=== PATIENT | female | born 1940 | race Two or more races ===

== ENCOUNTER 2018-03-20 10:27 | Outpatient (CLI) | payer OTHER ==
[~2018-03-20 10:27] MED LIST: COZAAR50 MG; DIOVAN320 MG; LEXAPRO20 MG; LITIUM; MOBIC7.5 M1 PO; NEURONTIN800 MG; ORPH100T PO; SEROQUEL25 MG
== END 2018-03-20 10:36 | disposition home or self-care (01) ==
LOC: MAMO-SONO 10:27
DX: R92.0 Mammographic microcalcification found on diagnostic imaging of breast (principal); N60.11 Diffuse cystic mastopathy of right breast; N60.12 Diffuse cystic mastopathy of left breast

== ENCOUNTER 2018-04-03 15:02 | Emergency (ER) | payer OTHER ==
[~2018-04-03] VITALS: Ht 162.6 cm; Wt 90.7 kg
[2018-04-03] MEDS ORDERED: LASIX20 MG (15:37)
[2018-04-03] MEDS ORDERED: PLAVIX75 MG (15:38)
[2018-04-03] MEDS ORDERED: TAMOXIFEN CITRA20 MG (15:38)
[2018-04-03] MEDS ORDERED: OSTERA TABLET1 EACH (15:39)
[2018-04-03] MEDS ORDERED: ZOCOR20 MG (15:39)
== END 2018-04-03 21:10 | disposition home or self-care (01) ==
LOC: ER 15:02
DX: M25.551 Pain in right hip (principal)

== ENCOUNTER 2020-11-14 10:43 | Emergency (ER) | payer OTHER ==
[~2020-11-14] VITALS: Ht 165.1 cm; Wt 97.5 kg
[~2020-11-14 10:43] MED LIST changes: +LASIX20 MG; +OSTERA TABLET1 EACH; +PLAVIX75 MG; +TAMOXIFEN CITRA20 MG; +ZOCOR20 MG
[2020-11-14] MEDS ORDERED: SPIRONOLACTONE25 MG PO (11:40)
[2020-11-14] MEDS ORDERED: ARIPIPRAZOLE5 MG PO (11:40)
[2020-11-14] MEDS ORDERED: CARVEDILOL3.125 M1 PO (11:40)
[2020-11-14] MEDS ORDERED: CANDESARTAN CILE4 MG PO (11:41)
[2020-11-14] MEDS ORDERED: CLONAZEPAM2 MG PO (11:41)
[2020-11-14] MEDS ORDERED: CLOPIDOGREL BIS75 MG PO (11:41)
[2020-11-14] MEDS ORDERED: DIVALPROEX SOD500 M1 PO (11:41)
[2020-11-14] MEDS ORDERED: SYSTANE COMPLE1.5 ML OP (11:42)
[2020-11-14] MEDS ORDERED: CALCIUM 600-VI1 EAC2 PO (11:42)
[2020-11-14] MEDS ORDERED: FAMOTIDINE20 MG PO (11:42)
[2020-11-14] MEDS ORDERED: GABAPENTIN400 MG PO (11:43)
[2020-11-14] MEDS ORDERED: TRAZODONE HCL100 MG PO (11:43)
[2020-11-14] MEDS ORDERED: SYNTHROID50 MCG PO (11:43)
[2020-11-14] MEDS ORDERED: SIMVASTATIN40 MG PO (11:44)
[2020-11-14] MEDS ORDERED: RENAL-VITE TAB0.8 MG PO (11:47)
[2020-11-14] MEDS ORDERED: LEVSIN/SL0.125 MG PO (14:40)
[2020-11-14] MEDS ORDERED: ULTRAM50 MG PO (14:40)
[2020-11-14] MEDS ORDERED: PEPCID AC20 MG PO (14:40)
[2020-11-14] MEDS ORDERED: ONDANSETRON ODT4 MG SL (14:40)
== END 2020-11-14 14:57 | disposition home or self-care (01) ==
LOC: ER 10:43 → EMR PED 11:01
DX: K80.70 Calculus of gallbladder and bile duct without cholecystitis without obstruction (principal); Z03.818 Encounter for observation for suspected exposure to other biological agents ruled out

== ENCOUNTER 2020-12-05 11:30 | Outpatient (CLI) | payer OTHER ==
[~2020-12-05 11:30] MED LIST changes: +ARIPIPRAZOLE5 MG PO; +CALCIUM 600-VI1 EAC2 PO; +CANDESARTAN CILE4 MG PO; +CARVEDILOL3.125 M1 PO; +CLONAZEPAM2 MG PO; +CLOPIDOGREL BIS75 MG PO; +DIVALPROEX SOD500 M1 PO; +FAMOTIDINE20 MG PO; +GABAPENTIN400 MG PO; +LEVSIN/SL0.125 MG PO; +ONDANSETRON ODT4 MG SL; +PEPCID AC20 MG PO; +RENAL-VITE TAB0.8 MG PO; +SIMVASTATIN40 MG PO; +SPIRONOLACTONE25 MG PO; +SYNTHROID50 MCG PO; +SYSTANE COMPLE1.5 ML OP; +TRAZODONE HCL100 MG PO; +ULTRAM50 MG PO
[2020-12-12] MEDS ORDERED: FUROSEMIDE20 MG PO (13:47)
[2020-12-12] MEDS ORDERED: TRAZO PO (13:47)
[2020-12-12] MEDS ORDERED: DIVALPROEX SOD500 MG PO (13:48)
== END 2020-12-05 11:36 | disposition home or self-care (01) ==
LOC: RAD 11:30
PROVIDERS: ATTEND Surgery
DX: Z01.811 Encounter for preprocedural respiratory examination (principal); K80.10 Calculus of gallbladder with chronic cholecystitis without obstruction

== ENCOUNTER 2020-12-19 06:04 | Day surgery (SDC) | payer OTHER ==
[~2020-12-19 06:04] MED LIST changes: +DIVALPROEX SOD500 MG PO; +FUROSEMIDE20 MG PO; +TRAZO PO
== END 2020-12-19 12:20 | disposition home or self-care (01) ==
LOC: CIR.AMB 06:04
PROVIDERS: ATTEND Surgery
DX: K80.10 Calculus of gallbladder with chronic cholecystitis without obstruction (principal); Z20.822 Contact with and (suspected) exposure to COVID-19

== ENCOUNTER 2022-09-16 12:24 | Emergency (ER) | payer OTHER ==
[~2022-09-16] VITALS: Ht 162.6 cm; Wt 93.4 kg
[2022-09-16] MEDS ORDERED: ELIQUIS5 MG (12:51)
[2022-09-16] MEDS ORDERED: PEPCID AC20 MG PO (19:10)
== END 2022-09-16 19:27 | disposition home or self-care (01) ==
LOC: ER 12:24
DX: R10.9 Unspecified abdominal pain (principal)

== ENCOUNTER 2023-05-13 21:51 | Inpatient (IN) | payer OTHER ==
[~2023-05-13] VITALS: Ht 165.1 cm; Wt 87.1 kg
[~2023-05-13 21:51] MED LIST changes: +ELIQUIS5 MG
== END 2023-05-15 17:45 | disposition home or self-care (01) | DRG 309 ==
LOC: ER 21:51 → MEDJ 05-14 11:25 → SURG 05-14 13:04
PROVIDERS: ADMIT Specialist; ATTEND Specialist
PROC: 4A12X4Z Monitoring of Cardiac Electrical Activity, External Approach (ICD-10-PCS; principal; 2023-05-14)
PROC: B030ZZZ Magnetic Resonance Imaging (MRI) of Brain (ICD-10-PCS; 2023-05-14)
PROC: BW28ZZZ Computerized Tomography (CT Scan) of Head (ICD-10-PCS; 2023-05-14)
PROC: B246ZZZ Ultrasonography of Right and Left Heart (ICD-10-PCS; 2023-05-14)
PROC: B345ZZZ Ultrasonography of Bilateral Common Carotid Arteries (ICD-10-PCS; 2023-05-14)
PROC: B348ZZZ Ultrasonography of Bilateral Internal Carotid Arteries (ICD-10-PCS; 2023-05-14)
DX: I48.91 Unspecified atrial fibrillation (principal); G21.19 Other drug induced secondary parkinsonism; G45.9 Transient cerebral ischemic attack, unspecified; N39.0 Urinary tract infection, site not specified; Z86.73 Personal history of transient ischemic attack (TIA), and cerebral infarction without residual deficits; Z20.822 Contact with and (suspected) exposure to COVID-19
CPT/HCPCS: 70544

== ENCOUNTER → 2023-12-16 | Emergency (ER) | payer OTHER ==
[~2023-12-16] VITALS: Ht 154.9 cm; Wt 113.4 kg
[~2023-12-16] MED LIST changes: +8 HOUR PAIN RE650 M1 PO; +KETOROLAC TROMETHAMINE 15 MG VIAL IM STA
== END | disposition home or self-care (01) ==
LOC: ER 13:34
DX: S39.94XA Unspecified injury of external genitals, initial encounter (principal); W18.39XA Other fall on same level, initial encounter; Y93.89 Activity, other specified; Y92.012 Bathroom of single-family (private) house as the place of occurrence of the external cause; Z86.73 Personal history of transient ischemic attack (TIA), and cerebral infarction without residual deficits; I49.8 Other specified cardiac arrhythmias; G30.8 Other Alzheimer's disease; F02.80 Dementia in other diseases classified elsewhere, unspecified severity, without behavioral disturbance, psychotic disturbance, mood disturbance, and anxiety
CPT/HCPCS: 72100; 73503; 96372; J1885

== ENCOUNTER 2025-03-18 11:44 | Inpatient (IN) | payer OTHER ==
[~2025-03-18] VITALS: Ht 165.1 cm; Wt 87.1 kg
[~2025-03-18 11:44] MED LIST changes: -KETOROLAC TROMETHAMINE 15 MG VIAL IM STA
[2025-03-18] MEDS ORDERED: ATROPINE SULFATE 0.4 MG/ML VIAL IV ONE (12:30)
[2025-03-18] MEDS ORDERED: 0.9 % SODIUM CHLORIDE 1,000 ML IV SCH (12:30)
[2025-03-18] MEDS ORDERED: ATROPINE SULFATE 0.4 MG/ML VIAL ONE (12:51)
[2025-03-18 13:00] LABS: BASO % 0.5 % (0.1-1.2); EOS # 0.12 (0.04-0.54); EOS % 1.6 % (0.7-7.0); HEMATOCRIT 31.9 % (34.1-44.9); HEMOGLOBIN 10.9 g/dL (11.2-15.7); LYMPH # 1.99 (1.18-3.74); LYMPH % 25.7 % (19.3-53.1); MEAN CORPUSCULAR HEMOGLOBIN 29.9 pg (25.6-32.2); MONO # 1.14 (0.24-0.82); NEUT # 4.41 (1.56-6.13); NEUT % 57.1 % (34.0-71.1); PLATELET COUNT 161 K/uL (163-369); RED BLOOD COUNT 3.65 M/uL (3.93-5.22); RED CELL DISTRIBUTION WIDTH 14.7 % (11.6-14.4)
[2025-03-18 13:04] LABS: MONO % 14.7 % (4.7-12.5)
[2025-03-18 13:59] LABS: INR 1.14; PARTIAL THROMBOPLASTIN TIME 30.9 SECONDS (22.0-34.0); PROTHROMBIN TIME 12.3 SECONDS (9.0-11.5)
[2025-03-18 14:33] LABS: URINE APPEARANCE Cloudy; URINE BILIRRUBIN Negative (NEGATIVE); URINE BLOOD Trace; URINE COLOR Yellow; URINE GLUCOSE Negative (NEGATIVE); URINE KETONE Negative (NEGATIVE); URINE LEUKOCYTE Large; URINE NITRATE Negative; URINE PROTEIN Negative (NEGATIVE); URINE UROBILINOGEN 0.2 E.U./dl
[2025-03-18 14:36] LABS: URINE BACTERIA 3829.6 uL (0.0-1933); URINE EPITHELIAL CELLS 109.3 uL (0.0-38.8); URINE RBC 4.7 uL (0.0-20.8); URINE WBC 225.7 uL (0.0-23.2)
[2025-03-18 14:55] LABS: ALBUMIN 3.3 gm/dL (3.4-5.0); BILIRUBIN TOTAL 0.51 mg/dL (0.3-1.2); CALCIUM 8.6 mg/dL (8.5-10.1); CREATININE SERUM 0.96 mg/dL (0.55-1.02); GFR 55.5; POTASSIUM 4.49 mEq/L (3.5-5.1); TOTAL PROTEIN 7.3 gm/dL (6.4-8.2)
[2025-03-18 14:56] LABS: DIGOXIN 0.1 ng/ml (0.8-2.0)
[2025-03-18 15:04] LABS: URINE CAST 0.14 uL (0.0-1.40)
[2025-03-18 15:06] LABS: URINE CRYSTALS FEW /HPF
[2025-03-18] MEDS ORDERED: NITROGLYCERIN IN 5 % DEXTROSE 50 MG/250 ML BOTTLE IV ONE (19:26)
[2025-03-18] MEDS ORDERED: IPRATROPIUM BROMIDE 0.5 MG/2.5 ML AMPUL.NEB IH SCH (19:36)
[2025-03-18] MEDS ORDERED: FUROsemide 20 MG/2 ML VIAL IV SCH (19:42)
[2025-03-18] MEDS ORDERED: SIMVASTATIN 40 MG TABLET PO SCH (19:43)
[2025-03-18] MEDS ORDERED: CEFTRIAXONE SODIUM 2,000 MG in 0.9 % SODIUM CHLORIDE 100 ML IV SCH (19:44)
[2025-03-18] MEDS ORDERED: NITROGLYCERIN IN 5 % DEXTROSE 250 ML IV SCH ×2 (19:45→20:00)
[2025-03-18] MEDS ORDERED: FAMOTIDINE/PF 20 MG in 0.9 % SODIUM CHLORIDE 8 ML IV PUSH SCH (19:46)
[2025-03-18] MEDS ORDERED: ACETAMINOPHEN 500 MG GEL..CAP PO PRN (20:00)
[2025-03-18] MEDS ORDERED: FUROsemide 20 MG/2 ML VIAL ONE (20:07)
[2025-03-18] MEDS ORDERED: CEFTRIAXONE SODIUM 2,000 MG VIAL ONE (20:08)
[2025-03-18] MEDS ORDERED: FAMOTIDINE/PF 20 MG/2 ML VIAL ONE (20:08)
[2025-03-18] MEDS ORDERED: CLONAZEPAM 0.5 MG TABLET PO SCH (21:00)
[2025-03-18] MEDS ORDERED: TRAZODONE HCL 50 MG TABLET PO SCH (21:00)
[2025-03-19] VITALS (9 sets, daily range): BP systolic 104–147; BP diastolic 58–87; O2SAT 96–100
[2025-03-19 00:26] LABS: INR 1.11; PARTIAL THROMBOPLASTIN TIME 28.5 SECONDS (22.0-34.0)
[2025-03-19] MEDS ORDERED: APIXABAN 5 MG TABLET PO SCH (05:00)
[2025-03-19] MEDS ORDERED: LEVOTHYROXINE SODIUM 75 MCG TABLET PO SCH (06:00)
[2025-03-19] MEDS ORDERED: IPRATROPIUM BROMIDE 0.5 MG/2.5 ML AMPUL.NEB IH ONE (07:59)
[2025-03-19] MEDS ORDERED: DIVALPROEX SODIUM 500 MG TAB.ER.24H PO SCH (09:00)
[2025-03-19] MEDS ORDERED: DIVALPROEX SODIUM 250 MG TAB.ER.24H PO SCH (09:00)
[2025-03-19 15:15] LABS: FREE TRIODOTIRONINE 1.99 pg/ml (2.18-3.98); T4 FREE 1.03 NG/ML (0.76-1.46)
[2025-03-19 15:17] LABS: TSH 5.45 uIU/mL (0.358-3.74)
[2025-03-20] VITALS (8 sets, daily range): BP systolic 119–171; BP diastolic 72–80; O2SAT 95–100
[2025-03-20] MEDS ORDERED: LEVOTHYROXINE SODIUM 100 MCG TABLET PO SCH (06:00)
[2025-03-20] MEDS ORDERED: FUROsemide 20 MG/2 ML VIAL IV SCH (09:00)
[2025-03-20] MEDS ORDERED: PRIMIDONE 50 MG TABLET PO SCH (09:00)
[2025-03-21 01:07] VITALS: O2SAT 97
[2025-03-21 01:28] VITALS: BP 127/82; O2SAT 95
[2025-03-21 05:12] VITALS: O2SAT 94
[2025-03-21] MEDS ORDERED: LEVOTHYROXINE SODIUM 88 MCG TABLET PO SCH (06:00)
[2025-03-21 07:53] VITALS: BP 150/90; O2SAT 99
[2025-03-21] MEDS ORDERED: LOSARTAN POTASSIUM 25 MG TABLET PO SCH (09:20)
[2025-03-21] MEDS ORDERED: GABAPENTIN 100 MG CAPSULE PO SCH (09:21)
[2025-03-21 09:31] VITALS: O2SAT 94
[2025-03-21] MEDS ORDERED: LEVOTHYROXINE88 MCG PO (12:15)
[2025-03-21 12:47] VITALS: O2SAT 90
[2025-03-24 15:08] LABS: anti thy < 1.0 IU/mL (0.0-0.9); tpo 14 IU/mL (0-34)
== END 2025-03-21 13:04 | disposition home or self-care (01) | DRG 291 ==
LOC: ER 11:44 → ICU-2 03-19 00:25 → MEDI 03-19 12:26
PROVIDERS: Emergency Medicine; ADMIT Internal Medicine; ATTEND Internal Medicine
PROC: 4A12X4Z Monitoring of Cardiac Electrical Activity, External Approach (ICD-10-PCS; principal; 2025-03-18)
PROC: B246ZZZ Ultrasonography of Right and Left Heart (ICD-10-PCS; 2025-03-18)
DX: I11.0 Hypertensive heart disease with heart failure (principal); I50.23 Acute on chronic systolic (congestive) heart failure; N39.0 Urinary tract infection, site not specified; I48.91 Unspecified atrial fibrillation; E87.70 Fluid overload, unspecified; M62.81 Muscle weakness (generalized); E03.9 Hypothyroidism, unspecified

== ENCOUNTER 2025-09-23 18:10 | Inpatient (IN) | payer OTHER ==
[~2025-09-23] VITALS: Ht 162.6 cm; Wt 83.5 kg
[~2025-09-23 18:10] MED LIST changes: +LEVOTHYROXINE88 MCG PO
[2025-09-23] MEDS ORDERED: ATIVAN1 M1 PO (19:03)
[2025-09-23] MEDS ORDERED: ABILIFY5 MG PO (19:03)
[2025-09-23] MEDS ORDERED: WELLBUTRIN XL150 M1 PO (19:04)
[2025-09-23] MEDS ORDERED: TRAZODONE HCL150 MG PO (19:06)
[2025-09-23] MEDS ORDERED: GRALISE600 MG PO (19:07)
[2025-09-23] MEDS ORDERED: CARBIDOPA-LEVO1 EAC1 (19:08)
[2025-09-23] MEDS ORDERED: TRIPHROCAPS SOFT1 MG PO (19:09)
[2025-09-23] MEDS ORDERED: D3-200050 MCG (19:10)
[2025-09-23] MEDS ORDERED: DAFLONEX-XL 11300 MG PO (19:12)
[2025-09-23] MEDS ORDERED: LEVO-T88 MCG PO (19:12)
[2025-09-23] MEDS ORDERED: [UNRECOGNIZED DRUG - OTHER] PO (19:13)
[2025-09-23] MEDS ORDERED: LOSARTAN POTASS50 MG PO (19:14)
[2025-09-23] MEDS ORDERED: METHYLPREDNISOLONE SOD SUCC 40 MG VIAL IV ONE (19:45)
[2025-09-23] MEDS ORDERED: IPRATROPIUM BROMIDE 0.5 MG/2.5 ML AMPUL.NEB IH ONE (19:45)
[2025-09-23 20:33] LABS: ERYTHROCYTE SEDIMENTATION RATE 75 mm/hr (0-30)
[2025-09-23 20:34] LABS: BASO % 0.2 % (0.1-1.2); EOS # 0.01 (0.04-0.54); EOS % 0.1 % (0.7-7.0); LYMPH # 1.29 (1.18-3.74); LYMPH % 10.4 % (19.3-53.1); MEAN PLATELET VOLUME 11.00 fl (9.4-12.4); MONO # 0.83 (0.24-0.82); MONO % 6.7 % (4.7-12.5); NEUT # 10.16 (1.56-6.13); NEUT % 82.4 % (34.0-71.1); RED CELL DISTRIBUTION WIDTH 13.9 % (11.6-14.4)
[2025-09-23 20:53] LABS: COVID-19 AG NEGATIVE (NEGATIVE)
[2025-09-23 21:24] LABS: URINE APPEARANCE Clear; URINE BILIRRUBIN Negative (NEGATIVE); URINE BLOOD Trace; URINE COLOR Yellow; URINE GLUCOSE Negative (NEGATIVE); URINE KETONE Negative (NEGATIVE); URINE LEUKOCYTE Trace; URINE NITRATE Negative; URINE PROTEIN Negative (NEGATIVE); URINE UROBILINOGEN 0.2 E.U./dl
[2025-09-23 21:28] LABS: URINE BACTERIA 111.5 uL (0.0-1933); URINE EPITHELIAL CELLS 8.3 uL (0.0-38.8); URINE RBC 2.7 uL (0.0-20.8); URINE WBC 18.7 uL (0.0-23.2)
[2025-09-23 21:31] LABS: URINE CAST 0.14 uL (0.0-1.40)
[2025-09-24] MEDS ORDERED: DOXYCYCLINE HYCLATE 100MG IV ONE (00:45)
[2025-09-24] MEDS ORDERED: CEFTRIAXONE SODIUM 1,000 MG VIAL IV ONE (00:45)
[2025-09-24] MEDS ORDERED: FAMOTIDINE/PF 20 MG/2 ML VIAL IV ONE (00:45)
[2025-09-24] MEDS ORDERED: IPRATROPIUM BROMIDE 0.5 MG/2.5 ML AMPUL.NEB IH ONE (01:15)
[2025-09-24] MEDS ORDERED: METHYLPREDNISOLONE SOD SUCC 40 MG VIAL IV ONE (01:15)
[2025-09-24 02:03] LABS: ALT/SGPT 43.0 U/L (12-78); AST/SGOT 68.0 U/L (15-37); BILIRUBIN TOTAL 0.61 mg/dL (0.3-1.2); BUN CREA RATIO 24.0 (7.0-25.0); CREATININE SERUM 0.9 mg/dL (0.55-1.02); GFR 59.8; GLOBULINA 4.3 G/DL (2.4-3.5); GLUCOSE FASTING 186.0 mg/dL (65-100); OSMOLALITY SERUM 288.0 MOSM/KG (275-295)
[2025-09-24 02:13] LABS: ALT/SGPT 42.0 U/L (12-78); AST/SGOT 67.0 U/L (15-37); BILIRUBIN TOTAL 0.61 mg/dL (0.3-1.2); BUN CREA RATIO 26.0 (7.0-25.0); CREATININE SERUM 0.88 mg/dL (0.55-1.02); GFR 61.37; GLOBULINA 4.3 G/DL (2.4-3.5); GLUCOSE FASTING 187.0 mg/dL (65-100); OSMOLALITY SERUM 288.0 MOSM/KG (275-295)
[2025-09-24 02:14] LABS: CKMB 4.0 NG/ML (0.5-3.6)
[2025-09-24] MEDS ORDERED: DOXYCYCLINE HYCLATE 100MG IV SCH (07:21)
[2025-09-24] MEDS ORDERED: SIMVASTATIN 40 MG TABLET PO SCH (07:22)
[2025-09-24] MEDS ORDERED: ACETAMINOPHEN 500 MG GEL..CAP PO PRN (07:30)
[2025-09-24] MEDS ORDERED: 0.9 % SODIUM CHLORIDE 1,000 ML IV SCH (07:30)
[2025-09-24] MEDS ORDERED: DEXTROSE 50 % IN WATER 0.5 G/ML DISP.SYRIN IV PRN (07:30)
[2025-09-24] MEDS ORDERED: INSULIN LISPRO 1,000 UNIT/10 ML UNITS SUBCUTANEO PRN (07:30)
[2025-09-24] MEDS ORDERED: METHYLPREDNISOLONE SOD SUCC 40 MG VIAL IV SCH (09:00)
[2025-09-24] MEDS ORDERED: OSELTAMIVIR PHOSPHATE 75 MG CAPSULE PO SCH (09:00)
[2025-09-24] MEDS ORDERED: FAMOTIDINE/PF 20 MG in 0.9 % SODIUM CHLORIDE 8 ML IV PUSH SCH (09:00)
[2025-09-24] MEDS ORDERED: APIXABAN 5 MG TABLET PO SCH (09:00)
[2025-09-24] MEDS ORDERED: LEVALBUTEROL HCL 1.25 MG/3 ML SOLUTION IH SCH (09:00)
[2025-09-24] MEDS ORDERED: IPRATROPIUM BROMIDE 0.5 MG/2.5 ML AMPUL.NEB IH SCH (09:00)
[2025-09-24] MEDS ORDERED: CEFTRIAXONE SODIUM 2,000 MG in 0.9 % SODIUM CHLORIDE 100 ML IV SCH (09:00)
[2025-09-24] MEDS ORDERED: CARBIDOPA/LEVODOPA 25/100 UDTAB PO SCH (09:00)
[2025-09-24 16:54] VITALS: BP 158/72; O2SAT 97
[2025-09-25 01:14] VITALS: BP 131/72; O2SAT 97
[2025-09-25 08:00] VITALS: BP 128/63; O2SAT 95
[2025-09-25] MEDS ORDERED: GABAPENTIN 400 MG CAPSULE PO SCH (08:00)
[2025-09-25] MEDS ORDERED: CARBIDOPA/LEVODOPA 25/100 UDTAB PO SCH (09:00)
[2025-09-25] MEDS ORDERED: OSELTAMIVIR PHOSPHATE 30MG CAP PO SCH (09:00)
[2025-09-25] MEDS ORDERED: HALOPERIDOL 2 MG TABLET PO PRN (12:30)
[2025-09-25 16:50] VITALS: BP 159/69; O2SAT 94
[2025-09-25] MEDS ORDERED: CLONAZEPAM 1 MG TABLET PO SCH (21:00)
[2025-09-25] MEDS ORDERED: DONEPEZIL HCL 5 MG TABLET PO SCH (21:00)
[2025-09-25] MEDS ORDERED: TRAZODONE HCL 50 MG TABLET PO SCH (21:00)
[2025-09-26 00:30] VITALS: BP 134/76; O2SAT 94
[2025-09-26 08:00] VITALS: BP 128/78; O2SAT 99
[2025-09-26] MEDS ORDERED: METHYLPREDNISOLONE SOD SUCC 40 MG VIAL IV STA (09:37)
[2025-09-26 16:00] VITALS: BP 147/78; O2SAT 97
[2025-09-26] MEDS ORDERED: METHYLPREDNISOLONE SOD SUCC 40 MG VIAL IV SCH (17:00)
[2025-09-27] VITALS: BP 138/69; O2SAT 97
[2025-09-27 07:27] LABS: BASO % 0.6 % (0.1-1.2); EOS # 0.00 (0.04-0.54); EOS % 0.0 % (0.7-7.0); LYMPH # 1.51 (1.18-3.74); LYMPH % 15.3 % (19.3-53.1); MEAN PLATELET VOLUME 10.00 fl (9.4-12.4); MONO # 0.63 (0.24-0.82); MONO % 6.4 % (4.7-12.5); NEUT # 6.71 (1.56-6.13); NEUT % 68.2 % (34.0-71.1); RED CELL DISTRIBUTION WIDTH 14.1 % (11.6-14.4)
[2025-09-27 08:05] LABS: BAND MAN 1.0 %; LYMPHOCYTE MAN 12.0 %; MONOCYTE MAN 12.0 %; NEUTROPHILS MAN 70.0 %
[2025-09-27 08:06] LABS: METAMYELOCYTE 2.0 %
[2025-09-27 08:20] VITALS: BP 126/64; O2SAT 96
[2025-09-27] MEDS ORDERED: DOXYCYCLINE HYCLATE 100MG IV ONE ×2 (16:24→23:36)
[2025-09-27 16:34] VITALS: BP 104/61; O2SAT 97
[2025-09-28 01:55] VITALS: BP 133/78; O2SAT 99
[2025-09-28 08:00] VITALS: BP 144/83; O2SAT 96
== END 2025-09-28 13:25 | disposition home or self-care (01) | DRG 179 ==
LOC: ER 18:11 → MEDJ 09-24 07:23 → SURH 09-24 07:23 → MEDI 09-24 08:47 → SURH 09-24 09:40 → SURG 09-26 11:35
PROVIDERS: Student in an Organized Health Care Education/Training Program; ADMIT Student in an Organized Health Care Education/Training Program; ATTEND Student in an Organized Health Care Education/Training Program
PROC: BW24ZZZ Computerized Tomography (CT Scan) of Chest and Abdomen (ICD-10-PCS; principal; 2025-09-23)
PROC: B020ZZZ Computerized Tomography (CT Scan) of Brain (ICD-10-PCS; 2025-09-23)
DX: J69.0 Pneumonitis due to inhalation of food and vomit (principal); J10.1 Influenza due to other identified influenza virus with other respiratory manifestations; R09.02 Hypoxemia; G20.A1 Parkinson's disease without dyskinesia, without mention of fluctuations; I48.91 Unspecified atrial fibrillation; F32.A Depression, unspecified; F41.9 Anxiety disorder, unspecified; E78.5 Hyperlipidemia, unspecified; D72.829 Elevated white blood cell count, unspecified; E03.9 Hypothyroidism, unspecified; I10 Essential (primary) hypertension